=== PATIENT | female | born 1960 | race Caucasian/White ===

== ENCOUNTER → 2021-11-13 | Outpatient (CLI) | payer OTHER ==
[~2021-11-13] MED LIST: ADVAIR HFA 230/1 INH INH; AMLODIPINE BESYL5 MG PO; ASPIRIN EC81 MG PO; CRANBERRY250 MG PO; FISH OIL 1,0001 EAC3 PO; LIPITOR20 MG PO; LO-DOSE ASPIRIN81 MG PO; MEDROL DOSEPAK 24 MG PO
== END ==
LOC: KOH-I 13:53
DX: F17.210 Nicotine dependence, cigarettes, uncomplicated (principal); R91.1 Solitary pulmonary nodule
CPT/HCPCS: 71271